=== PATIENT | male | born 1960 | race Caucasian/White ===

== ENCOUNTER 2023-07-20 15:27 | Emergency (ER) | payer OTHER, SELFPAY ==
[2023-07-20 15:35] VITALS: BP 153/89; PULSE 102; RESP 18; TEMP 36.2; O2SAT 96; BMI 25.1
--- NOTE | 2023-07-20 15:42 | ED_ITS ---
HPI - General Adult General Date Seen: 07/20/23 Chief complaint: Extremity Pain/Injury, Lower Stated complaint: Fall, R knee injury Time Seen by Provider: 07/20/23 15:38 History of Present Illness HPI narrative: This is a pleasant 63-year-old bonner who presents to the ER today for a right knee injury. He was getting out of his tractor this afternoon we and he lost his footing and fell down. When he hit the ground on his right foot he felt his knee point awkwardly and twist. He says his foot states still but his knee bent to the side. He describes a varus deformity). The knee snapped back in. Ever since then he has been having pain whenever he tries to bear weight and feels and instability in his knee. No other injuries in the fall. He did not hurt his hip, back, or ankle. He did not hit his head. He has no previous history of knee problems. No previous knee surgeries. No numbness or tingling in his lower leg or foot. He does have history of previous ankle problems. But that is now healed. Related Data Home Medications Medication Instructions Recorded Confirmed atorvastatin 10 mg tablet 10 mg PO QPM 07/20/23 07/20/23 gabapentin 300 mg capsule 300 mg PO QPM 07/20/23 07/20/23 insulin aspart U-100 100 unit/mL subcut 07/20/23 (3 mL) subcutaneous pen insulin glargine 100 unit/mL (3 unit subcut 07/20/23 mL) subcutaneous pen (Basaglar KwikPen U-100 Insulin) lisinopril 2.5 mg tablet 2.5 mg PO DAILY 07/20/23 07/20/23 pregabalin 50 mg capsule 50 mg PO 3XD 07/20/23 07/20/23 Allergies Allergy/AdvReac Type Severity Reaction Status Date / Time No Known Drug Allergies Allergy Verified 07/20/23 15:35 Exam Narrative: Exam Narrative: Constitutional: Appears well-developed and well-nourished. Alert. Conversant. Non toxic. Very polite. HENT: Head: Atraumatic. Nose: Nose normal. Mouth/Throat: Oral mucosa is clear and moist. no trismus. Eyes: Conjunctivae normal. EOM normal. Pupils equal, round, and reactive to light. No scleral icterus. Neck: Normal range of motion. Neck supple. No tracheal deviation present. Cardiovascular: Normal rate, regular rhythm. No gallop. No friction rub. No murmur heard. Symmetric DP and PT artery pulses Pulmonary/Chest: Effort normal. No stridor. No respiratory distress. No wheezes. No rales. No rhonchi . No tenderness. Abdominal: Soft. No tenderness. No rebound. No guarding. Musculoskeletal: No spine tenderness. Pelvis stable. Hips nontender. RUE: Normal range of motion. No tenderness. No deformity LUE: Normal range of motion. No tenderness. No deformity RLE: Normal range of motion in his hip, ankle. He is able to actively range his knee from full extension to about 90? of flexion but is limited by pain there. No knee swelling or deformity. No redness. No bruising. No crepitus. Patella nontender. Quadriceps, quad tendon, patella, patellar tendon, and tibial tuberosity nontender. Proximal fibula nontender. Medial tibia is tender. No definite bruising or swelling. No ligamentous laxity of the ACL, PCL, MCL, LCL but I think he is also guarding so this limits exam. Lower leg, calf, Achilles, tibial spine, ankle, and foot are nontender. LLE: Normal range of motion. No edema. No tenderness. No deformity Lymph: No cervical adenopathy. Neurological: Alert and oriented to person, place, and time. Normal strength. CN II-VII intact. No sensory deficit. GCS eye subscore is 4. GCS verbal subscore is 5. GCS motor subscore is 6. Normal coordination Skin: Skin is warm and dry. No rash noted. No pallor. Normal capillary refill. Psychiatric: Normal mood. Normal affect. Const: Vital Signs, click to edit/add: Vital Signs - 24 hr 07/20/23 15:35 Temperature 97.1 F L Pulse Rate [Pulse Oximeter] 102 H Respiratory Rate 18 Blood Pressure [Ri ght Upper Arm] 153/89 H Pulse Oximetry 96 Oxygen Delivery Me thod Room Air Course Course ED Course: Recheck-repeat knee exam after x-ray still no definite ligamentous laxity. However with the patient's report of popping and instability with walking were concerned about possible soft tissue injury. Placed into a knee immobilizer pain Vital Signs Vital signs: Initial Vital Signs Temperature 97.1 F L 07/20/23 15:35 Temperature Source Temporal Artery Scan 07/20/23 15:35 Pulse Rate 102 H 07/20/23 15:35 Respiratory Rate 18 07/20/23 15:35 Blood Pressure 153/89 H 07/20/23 15:35 Blood Pressure Mean 110 H 07/20/23 15:35 Blood Pressure Position Sitting 07/20/23 15:35 Pulse Oximetry 96 07/20/23 15:35 Oxygen Delivery Method Room Air 07/20/23 15:35 Vital Signs Temperature 97.1 F L 07/20/23 15:35 Pulse Rate 102 H 07/20/23 15:35 Respiratory Rate 18 07/20/23 15:35 Blood Pressure 153/89 H 07/20/23 15:35 Pulse Oximetry 96 07/20/23 15:35 Oxygen Delivery Method Room Air 07/20/23 15:35 Temperature 97.1 F L 07/20/23 15:35 Pulse Rate 102 H 07/20/23 15:35 Respiratory Rate 18 07/20/23 15:35 Blood Pressure 153/89 H 07/20/23 15:35 Pulse Oximetry 96 07/20/23 15:35 Oxygen Delivery Method Room Air 07/20/23 15:35 Medications Administered Medications: Discontinued Medications Generic Name Dose Route Start Last Admin Trade Name Freq PRN Reason Stop Dose Admin Acetaminophen 1,000 mg 07/20/23 16:28 07/20/23 16:35 Acetaminophen 500 Mg Tablet PO 07/20/23 16:29 1,000 mg ONCE ONE Administration Medical Decision Making [facility] Narrative Medical decision making narrative: Very pleasant 63-year-old gentleman presenting to the ER today with after he injured his right knee 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 Fortunately he is neurovascularly intact in the right leg. No evidence for any lumbar spine injury, lumbar radiculopathy, acute knee dislocation or any neurovascular compromise. X-rays of the right knee are negative for any acute fracture or tibial plateau fracture. My exam is negative for any obvious ligamentous laxity but I have a high pretest probability that there is probably a ligamentous injury here based on the patient's description of the knee and his reported instability. Will immobilize the knee immobilizer. He is comfortable with Tylenol and ibuprofen so hold off on any opiate analgesics. He will need close outpatient follow-up with orthopedic clinic for repeat knee evaluation and if residual clinical concern exists he may need MRI. He is comfortable in knee immobilizer. He politely declines crutches. He will call tomorrow morning to arrange his follow-up visit. Precautions for return to the ER reviewed Imaging Data XR knee: Attestation: I have reviewed the pertinent imaging results. Radiologist's impression: Findings/impression : Normal alignment and mineralization without acute fracture, dislocation or suspicious bony lesion. Minimal spurring is noted within the undersurface of the patella, joints are otherwise preserved. There are no soft tissue radiopaque foreign bodies. Discharge Plan Discharge Clinical Impression: Right knee injury Patient Disposition: Home, Self-Care Condition: Stable Instructions: Knee Pain (ED), Knee Immobilizer (ED) Additional Instructions: Please wear the knee immobilizer whenever you are up and around for the next couple of days. Call the [facility] tomorrow morning at 8:30 a.m. when they open up to ask for an ER follow-up appointment in the orthopedic clinic. Call [phone] arrange a follow-up appointment for within the next 1-2 days. They can re-evaluate your knee after some the pain settles down and, if necessary may obtain an MRI to check out your knee ligaments. Prescriptions: No Action atorvastatin 10 mg tablet 10 mg PO QPM gabapentin 300 mg capsule 300 mg PO QPM lisinopril 2.5 mg tablet 2.5 mg PO DAILY insulin aspart U-100 100 unit/mL (3 mL) insulin pen subcut pregabalin 50 mg capsule 50 mg PO 3XD insulin glargine [Basaglar KwikPen U-100 Insulin] 100 unit/mL (3 mL) insulin pen subcut Follow Up/Referrals: Jacques Torres MD [Primary Care Provider] - Stand Alone Forms: [employer] Info Instructions
--- NOTE | 2023-07-20 16:28 | XR_ITS ---
Patient: MEGHANA DORSEY Facility:?[facility] Patient ID:?[id number] Site Patient ID:?[id number]. Site :?[id number] Study:?XRay-Extremity Right KNEE-07/20/2023 4:56:45 PM Ordering Physician:?DR. FELIZ Final Report: Indication: Fall Technique: Three views of the right knee Comparison: None. Findings/impression : Normal alignment and mineralization without acute fracture, dislocation or suspicious bony lesion. Minimal spurring is noted within the undersurface of the patella, joints are otherwise preserved. There are no soft tissue radiopaque foreign bodies. Dictated by Ignacio Antony MD @ 07/20/2023 5:14:55 PM Signed by:?Ignacio Antony MD @07/20/2023 5:14:55 PM (Electronic Signature)
[2023-07-20] MEDS: ACETAMINOPHEN 500 MG TABLET 1000 MG PO (16:35)
== END 2023-07-20 18:16 | disposition home or self-care (01) ==
PROVIDERS: Emergency Provider Emergency Medicine; PCP Family Medicine
DX: M25.561 Pain in right knee (principal); X50.1XXA Overexertion from prolonged static or awkward postures, initial encounter
CPT/HCPCS: 73562; 99283; A9270